=== PATIENT | male | born 1960 ===

== ENCOUNTER 2023-05-27 08:18 | Outpatient (RCR) | payer BC, SELFPAY | END 2023-05-27 23:59 | disposition home or self-care (01) | LOC: RPT 08:18 | PROVIDERS: ATTENDING PHYSICIAN Specialist; FAMILY PHYSICIAN Family Medicine | DX: C61 Malignant neoplasm of prostate (principal); M62.89 Other specified disorders of muscle | CPT/HCPCS: 97110; 97162; 97530 ==